=== PATIENT | male | born 1975 | race Caucasian/White ===

== ENCOUNTER 2017-08-31 14:38 | Outpatient (CLI) | payer BC ==
--- NOTE | 2017-08-31 17:01 | MRI ---
MRI LUMBAR SPINE NONCONTRAST: 08/31/17 HISTORY: Low back pain. Left leg radiculopathy. FINDINGS: The conus medullaris has a normal appearance. Vertebral body height and alignment are maintained. Bon e marrow signal is within normal limits. T12-L1, L1-2: Mild osteophytosis is present. The central canal and neural foramina are patent. L2-3: There is disc space narrowing and desiccation of the disc. Minimal disc bulge is present. Degen erative changes result in mild to moderate stenosis of the left neural foramen at this level. L3-4: There is disc space narrowing and desiccation of the disc. Posterior disc bulge, along with fac et joint hypertrophy and ligamentous thickening, results in mild stenosis of the central canal. There is an annular fissure in the far left side of the disc. Disc bulge also results in moderate right an d severe left foraminal stenosis. L4-5: There is disc space narrowing and desiccation of the disc. Posterior disc bulge is slightly asy mmetric, more prominent to the right of midline and, along with facet joint hypertrophy and ligamento us thickening, result in severe stenosis of the central canal and moderate stenosis of each neural fo ramen. L5-S1: There is minimal disc bulge. The central canal and neural foramina remain patent. 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 If neurologic symptoms are present, please consider neurosurgical consultation. POS: LUIS
== END 2017-08-31 14:39 | disposition home or self-care (01) ==
LOC: SCSMRI 14:38
PROVIDERS: ATTEND Internal Medicine
DX: M47.27 Other spondylosis with radiculopathy, lumbosacral region (principal); M48.061 Spinal stenosis, lumbar region without neurogenic claudication; M99.43 Connective tissue stenosis of neural canal of lumbar region
CPT/HCPCS: 72148

== ENCOUNTER 2018-05-29 06:38 | Outpatient (CLI) | payer OTHER | END 2018-05-29 06:39 | disposition home or self-care (01) | LOC: BICULT 06:38 | PROVIDERS: ATTEND Nurse Practitioner Family | DX: R74.8 Abnormal levels of other serum enzymes (principal); K76.0 Fatty (change of) liver, not elsewhere classified | CPT/HCPCS: 76705 ==